=== PATIENT | male | born 1940 | race Caucasian/White ===

== ENCOUNTER 2020-03-18 16:19 | Emergency (ER) | payer MEDICARE, OTHER ==
[~2020-03-18] VITALS: Ht 170.2 cm; Wt 83.0 kg
[2020-03-18] MEDS ORDERED: GABAPENTIN100 MG PO (16:44)
[2020-03-18] MEDS ORDERED: APRESOLINE50 MG PO (16:44)
[2020-03-18] MEDS ORDERED: PRAVACHOL20 MG PO (16:45)
[2020-03-18] MEDS ORDERED: ASPIRIN 81 LOW81 MG PO (16:46)
[2020-03-18] MEDS ORDERED: PROTONIX40 M2 PO (16:46)
[2020-03-18] MEDS ORDERED: PHOSLO667 M1 PO (16:47)
[2020-03-18] MEDS ORDERED: CARVEDILOL6.25 MG PO (16:47)
[2020-03-18] MEDS ORDERED: LOSARTAN POTASS50 MG PO (16:48)
[2020-03-18] MEDS ORDERED: PLAVIX75 MG PO (16:48)
[2020-03-18] MEDS ORDERED: CILOSTAZOL50 MG PO (16:49)
[2020-03-18] MEDS ORDERED: HYDROCO/APAP1 TA9 PO (16:51)
[2020-03-18] MEDS ORDERED: LEVEMIR100 UNIT/M SC (16:52)
[2020-03-18 17:31] LABS: IMMATURE GRANULOCYTES 1.1 % (0.0-5.0); MEAN CELL VOLUME 108.3 fL CALC (80.0-100.0); MEAN CORPUSCULAR HGB 33.3 pG CALC (26.0-32.0); MEAN CORPUSCULAR HGB CONC 30.8 g/dL CAL (32.0-36.0); NEUT# 17.99 thou/uL (1.82-7.42); RED BLOOD COUNT 1.8 mill/uL (4.70-6.10); RED CELL DISTRI WIDTH 17.3 % (11.5-15.5)
[2020-03-18 17:50] LABS: ACT PARTIAL THROMBO TIME 32.4 SECONDS (20.0-32.5); HEMATOCRIT 19.5 % (39.0-50.0); INTERNATIONAL NORMALIZED RATIO 1.3 RATIO (0.7-1.3); PROTHROMBIN TIME 13.6 SECONDS (9.0-12.5)
[2020-03-18 17:59] LABS: ALBUMIN 2.9 g/dL (3.2-5.0); BILIRUBIN, TOTAL 0.5 mg/dL (0.0-1.4); TOTAL PROTEIN 5.7 g/dL (6.3-8.2)
[2020-03-18 18:03] VITALS: BP 125/55
[2020-03-18 18:12] LABS: CREATININE 5.6 mg/dL (0.7-1.3)
--- NOTE | 2020-03-21 09:21 | NUR ---
12/24 BLOOD CX PRELIM RESULTS SHOW GRAM POSITIVE COCCI. PT WAS TRANSFERRED TO [facility]. 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 CALLED PT, SPOKE WITH RACH WHO INFORMED ME PT YESTERDAY.
== END 2020-03-18 18:00 | disposition short-term general hospital (02) ==
LOC: ED 16:19
PROVIDERS: Family Medicine
DX: E11.51 Type 2 diabetes mellitus with diabetic peripheral angiopathy without gangrene (principal); D64.9 Anemia, unspecified; L03.116 Cellulitis of left lower limb; E11.22 Type 2 diabetes mellitus with diabetic chronic kidney disease; I12.0 Hypertensive chronic kidney disease with stage 5 chronic kidney disease or end stage renal disease; N18.6 End stage renal disease; I25.2 Old myocardial infarction; Z99.2 Dependence on renal dialysis; Z79.4 Long term (current) use of insulin; Z86.718 Personal history of other venous thrombosis and embolism
CPT/HCPCS: J1644